=== PATIENT | male | born 1970 | race Caucasian/White ===

== ENCOUNTER 2019-11-17 08:33 | Day surgery (SDC) | payer BC ==
[~2019-11-17 08:33] MED LIST: CYCL10 PO; OLME20 PO; PARO20 PO
== END 2019-11-17 23:17 | disposition home or self-care (01) ==
LOC: RAD 08:33 → MRI 10:00 → RAD 23:17
DX: S43.431D Superior glenoid labrum lesion of right shoulder, subsequent encounter (principal); M75.111 Incomplete rotator cuff tear or rupture of right shoulder, not specified as traumatic
CPT/HCPCS: 23350; 70030; 73040; 73222; A9577; Q9967

== ENCOUNTER 2022-04-01 11:22 | Day surgery (SDC) | payer BC ==
[~2022-04-01] VITALS: Ht 172.7 cm; Wt 107.8 kg
[2022-04-01] MEDS ORDERED: OLME20 (11:55)
[2022-04-01] MEDS ORDERED: ZOCOR20 MG (11:56)
--- NOTE | 2022-04-01 14:39 | NUR ---
04/01/[address] IN FOR BLOCK RIGHT SHOULDER [id number]
== END 2022-04-01 17:09 | disposition home or self-care (01) ==
LOC: ORSCSDS 11:22
PROVIDERS: Orthopaedic Surgery
PROC: 0RNJ4ZZ Release Right Shoulder Joint, Percutaneous Endoscopic Approach (ICD-10-PCS; principal; 2022-04-01 13:30)
PROC: 0LS34ZZ Reposition Right Upper Arm Tendon, Percutaneous Endoscopic Approach (ICD-10-PCS; principal; 2022-04-01 13:30)
DX: M75.111 Incomplete rotator cuff tear or rupture of right shoulder, not specified as traumatic (principal); M75.21 Bicipital tendinitis, right shoulder; M75.41 Impingement syndrome of right shoulder; I10 Essential (primary) hypertension; E78.5 Hyperlipidemia, unspecified; G47.33 Obstructive sleep apnea (adult) (pediatric); E66.9 Obesity, unspecified; Z68.36 Body mass index [BMI] 36.0-36.9, adult
CPT/HCPCS: C1713; J0690; J1100; J2250; J2370; J2405; J2704; J3010; J7120

== ENCOUNTER 2022-12-19 09:32 | Day surgery (SDC) | payer BC ==
[~2022-12-19] VITALS: Ht 172.7 cm; Wt 111.8 kg
[2022-12-19] VITALS (12 sets, daily range): BP systolic 102–124; BP diastolic 61–75
[~2022-12-19 09:32] MED LIST changes: +IBUP200 PO; +OLME20; +ZOCOR20 MG
--- NOTE | 2022-12-19 10:31 | NUR ---
Ambulatory in Day Surgery Surgical site prepped with 2% Chlorhexidine cloth wipe. History, Chart, Medications and Allergies reviewed before start of procedure.Lungs clear T/O to Auscultation. Patient confirms NPO status and agrees with scheduled surgery. Pre-Op teaching done. Pt verbalizes understanding. Patient States Post-Procedure ride home has been arranged. Patient reports completing Chlorhexadine shower X2 prior to admission to hospital.
--- NOTE | 2022-12-19 14:16 | NUR ---
REPORT RECEIVED FROM ZAHRA DAMON RN. VSS. PT ON 4L O2 VIA NC. PT ABLE TO REPOSITION SELF IN BED. PT REQUESTING PO FLUIDS AND TOLERATING THEM WELL. PT REPORTS ACHING 2/10 PAIN TO ABDOMEN. PT DENIES NAUSEA OR OTHER DISCOMFORTS AT THIS TIME. PT HAS 4 INCISION SITES TO ABDOMEN WITH DERMABOND IN PLACE THAT ARE C/D/I WITHOUT REDNESS OR SWELLING.
--- NOTE | 2022-12-19 15:12 | NUR ---
Patient up to Ambulate independently. Gait steady. VSS. PT IS COMFORTABLE AND READY FOR DISCHARGE. Discharge instructions reviewed with patient. Patient verbalizes understanding. Copy given to patient to take home. Dressing to procedure site clean, dry, intact with no visible drainage, swelling, erythema or bruising noted. Patient States Post-Procedure ride home has been arranged. Discharged via wheelchair to private car for ride home. PT BELONGINGS RETURNED TO PT.
== END 2022-12-19 15:16 | disposition home or self-care (01) ==
LOC: ORSCMMR 09:32 → ORD 11:00 → ORSCMMR 15:16
PROVIDERS: Surgery
PROC: 0YU64JZ Supplement Left Inguinal Region with Synthetic Substitute, Percutaneous Endoscopic Approach (ICD-10-PCS; principal; 2022-12-19 11:00)
PROC: 8E0W4CZ Robotic Assisted Procedure of Trunk Region, Percutaneous Endoscopic Approach (ICD-10-PCS; principal; 2022-12-19 11:00)
PROC: 0WUF4JZ Supplement Abdominal Wall with Synthetic Substitute, Percutaneous Endoscopic Approach (ICD-10-PCS; principal; 2022-12-19 11:00)
PROC: 0DNU4ZZ Release Omentum, Percutaneous Endoscopic Approach (ICD-10-PCS; principal; 2022-12-19 11:00)
DX: K40.30 Unilateral inguinal hernia, with obstruction, without gangrene, not specified as recurrent (principal); K42.9 Umbilical hernia without obstruction or gangrene; D36.0 Benign neoplasm of lymph nodes; D17.6 Benign lipomatous neoplasm of spermatic cord; K66.0 Peritoneal adhesions (postprocedural) (postinfection); K57.30 Diverticulosis of large intestine without perforation or abscess without bleeding; I10 Essential (primary) hypertension; E78.00 Pure hypercholesterolemia, unspecified; G47.33 Obstructive sleep apnea (adult) (pediatric); K21.9 Gastro-esophageal reflux disease without esophagitis; E66.9 Obesity, unspecified; Z68.37 Body mass index [BMI] 37.0-37.9, adult; Z79.899 Other long term (current) drug therapy
CPT/HCPCS: 49650; 49591; 49329; S2900; 88304; A9270; C1781; J0690; J1100; J1170; J1885; J2371; J2405; J2704; J3010; J7120